=== PATIENT | male | born 1990 | race Hispanic/Latino ===

== ENCOUNTER 2017-09-02 07:56 | Emergency (ER) | payer OTHER ==
[~2017-09-02] VITALS: Ht 180.3 cm; Wt 99.8 kg
[2017-09-02 07:59] VITALS: BP 123/79
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
[2017-09-02] MEDS ORDERED: IBUPROFEN800 M1 PO (08:58)
[2017-09-02] MEDS ORDERED: HYDROCODON-ACE1 EAC2 PO (09:26)
== END 2017-09-02 09:28 ==
LOC: ERH 07:56
DX: S46.001A Unspecified injury of muscle(s) and tendon(s) of the rotator cuff of right shoulder, initial encounter (principal); S80.211A Abrasion, right knee, initial encounter; S80.212A Abrasion, left knee, initial encounter; V28.4XXA Motorcycle driver injured in noncollision transport accident in traffic accident, initial encounter; Y92.415 Exit ramp or entrance ramp of street or highway as the place of occurrence of the external cause
CPT/HCPCS: 73030-RT